=== PATIENT | female | born 1955 | race Caucasian/White ===

== ENCOUNTER 2019-06-16 06:12 | Day surgery (SDC) | payer OTHER ==
[2019-06-16] MEDS ORDERED: CEFAZOLIN SODIUM IN 0.9 % NACL 2 GM/100 ML BAG IV ONE (06:17)
[2019-06-16] MEDS ORDERED: LACTATED RINGERS 1,000 ML IV ONE ×2 (06:46→08:25)
--- NOTE | 2019-06-16 07:15 | ANESTHESIA ---
Pre-Anesthesia VS, & Labs - Diagnosis right index finger mass - Procedure excision of right finger index mass Vital Signs: Temp Pulse Resp BP Pulse Ox 36.5 C 73 18 136/70 H 100 06/16/19 06:20 06/16/19 06:20 06/16/19 06:20 06/16/19 06:20 06/16/19 06:20 Height 5 ft 6.93 in Weight (kg) 59.9 kg Body Mass Index 20.9 - NPO >8 hours - Is Patient ?: No Home Medications and Allergies Home Medications: Ambulatory Orders Liothyronine [Cytomel] 25 mcg PO QDAC 04/09/19 Loratadine 10 mg PO DAILY 07/18/14 Liothyronine [Cytomel] 25 mcg PO QDAC 04/09/19 Allergies/Adverse Reactions: Allergies Allergy/AdvReac Type Severity Reaction Status Date / Time lidocaine Allergy Edema Verified 06/10/19 11:43 Sulfa (Sulfonamide Allergy Emesis Verified 06/10/19 11:43 Antibiotics) cellulose Allergy Unknown Uncoded 06/10/19 11:43 sunlight Allergy Unknown Uncoded 06/10/19 11:43 Anes History & Medical History - Anesthetic History Anesthesia Complications: reports: No previous complications Family history of Anesthesia Complications: Denies Family history of Malignant Hyperthermia: Denies - Medical History Cardiovascular: reports: None, Other (snores) Pulmonary: reports: None Gastrointestinal: reports: None Urinary: reports: None Neuro: reports: None Musculoskeletal: reports: None, Other Endocrine/Autoimmune: reports: HyPOthyroidism Blood Disorders: reports: None Skin: reports: None Smoking Status: Former smoker (quit 1997) - Surgical History General: Colonoscopy Eyes Ears Nose Throat (EENT): Other (polypectomy) Exam General: Alert, Oriented x3, Cooperative, No acute distress Dental: WNL Mouth Openin Fingerbreadth Neck Mobility: Normal Mallampati classification: III Thyromental Distance: 4-6 cm (2 FB) Respiratory: Lungs clear, Normal breath sounds, No respiratory distress, No accessory muscle use Cardiovascular: Regular rate, Normal S1, Normal S2, No murmurs Mental/Cognitive Status: Alert/Oriented X3, Normal for patient Plan Anesthesia Type: General Consent for Procedure(s) Verified and Reviewed: Yes Code Status: Attempt Resuscitation ASA classification: 2-Mild systemic disease Is this case an emergency?: No
[2019-06-16] MEDS ORDERED: BUPIVACAINE 0.25% PF 30 ML VIAL ONE (07:23)
[2019-06-16] MEDS ORDERED: BUPIVACAINE 0.25% PF 30 ML VIAL SUBQ ONE (08:11)
[2019-06-16] MEDS ORDERED: ONDANSETRON 4 MG/2 ML VIAL IVP PRN (08:21)
[2019-06-16] MEDS ORDERED: oxyCODONE 5 MG TABLET PO PRN (08:21)
--- NOTE | 2019-06-16 08:27 | OPERATIVE REPORT ---
Operative Report - Other Other Information/Narrative: Date of Surgery: 16 June 2019 Pre-Op Diagnosis: Right index finger cyst overlying the PIP joint Procedure: Excision of right index finger cyst and osteophyte Postop Diagnosis: Same Primary Surgeon: Daniel Oliva Secondary Surgeon: None Complications: None Tourniquet Time: 15 minutes EBL: 1 cc Postoperative Protocol: Dressing off at 5 days and replace with Band-Aid. Full range of motion after that but no firm gripping for 3 weeks. Indication For Surgery: 63-year-old female with 8 months of an insidious onset mass over the right index finger that is painful and bothersome. She declined aspiration and desired definitive treatment to reduce her symptoms. I discussed the risk of recurrence as well as damage to nearby structures. The risks, benefits, and alternatives were discussed. Risks include pain, bleeding, infection, damage to nearby structures, numbness, lack of symptom relief, need for further surgery, DVT, PE, stroke, and . Written consent was obtained. The patient was met in the preoperative holding on the day of the procedure. Operative extremity was signed. Consent was verified. They desire to proceed. They were brought to the operating room and placed in the supine position. A well-padded forearm tourniquet was applied. They were prepped and draped in the standard fashion. A surgical timeout was held will be confirmed the patient procedure, identity, allergies, antibiotics, image,s laterality, and finger. All were in agreement we proceeded. A longitudinal incision was made centrally at the level of the PIP joint. Scissor dissection was used to separate the mass from surrounding tissues and the stalk was identified coming down between the central slip and the ulnar lateral band to the joint capsule. That interval was explored and the joint capsule and stalk were excised in 1 piece. A small osteophyte was seen dorsally over the proximal phalanx head and this was excised with a rondure. The wound was irrigated copiously. The lateral band and central slip interval was closed with a single Vicryl and the skin was closed with nylon. 5 cc of quarter percent Marcaine plain were instilled in a dorsal ring block. She was transferred to the recovery room.
[2019-06-16] MEDS ORDERED: ONDANSETRON 4 MG/2 ML VIAL ONE (08:33)
[2019-06-16 09:27] VITALS: BP 119/64
== END 2019-06-16 06:13 | disposition home or self-care (01) ==
LOC: SDS 06:12
PROVIDERS: ATTEND Orthopaedic Surgery
PROC: 0PBT0ZZ Excision of Right Finger Phalanx, Open Approach (ICD-10-PCS; principal; 2019-06-16 07:30)
DX: D18.09 Hemangioma of other sites (principal); M25.741 Osteophyte, right hand; Z87.891 Personal history of nicotine dependence

== ENCOUNTER 2019-06-19 12:25 | Emergency (ER) | payer OTHER ==
--- NOTE | 2019-06-19 13:40 | ED Physician Documentation ---
PD HPI SKIN - Stated complaint Stated Complaint: RASH RT ARM - Chief complaint Chief Complaint: Allergic Rx - History obtained from History obtained from: Patient - History of Present Illness Timing - onset: Last night, Yesterday Timing - details: Gradual onset Location: RUE Quality / character: Other (she had ganglion surgery right index finger 3 days ago and noted some small red bumpy rash on right forearm last night, to the upper arm today. Minimally itchy. No fever. Not tender.). No: Itchy, Painful Contributing factors: No: Exposed to medication (denies abx, NSAIDs, nor opioids since surgery.), Exposed to soap / lotion (has used same skin lotion as usual.) Recently seen: Surgery Review of Systems Constitutional: denies: Fever, Chills, Myalgias Nose: denies: Rhinorrhea / runny nose, Congestion Throat: denies: Sore throat Respiratory: denies: Cough Neurologic: denies: Focal weakness, Numbness PD PAST MEDICAL HISTORY - Past Medical History Past Medical History: Yes Cardiovascular: None, Other Respiratory: None Neuro: None Endocrine/Autoimmune: HyPOthyroidism GI: None P[employer] SAWYER: None : None HEENT: None Psych: None Musculoskeletal: None, Other Derm: None - Past Surgical History Past Surgical History: Yes General: Colonoscopy HEENT: Other - Present Medications Home Medications: Ambulatory Orders Medication Instructions Recorded Confirmed Loratadine 10 mg PO DAILY 07/18/14 06/16/19 Liothyronine [Cytomel] 25 mcg PO QDAC 04/09/19 06/16/19 - Allergies Allergies/Adverse Reactions: Allergies Allergy/AdvReac Type Severity Reaction Status Date / Time latex Allergy Rash Verified 06/19/19 12:33 lidocaine Allergy Edema Verified 06/19/19 12:33 Sulfa (Sulfonamide Allergy Emesis Verified 06/19/19 12:33 Antibiotics) cellulose Allergy Unknown Uncoded 06/19/19 12:33 sunlight Allergy Unknown Uncoded 06/19/19 12:33 - Social History Does the pt smoke?: No Smoking Status: Never smoker Does the pt drink ETOH?: No Does the pt have substance abuse?: No - Immunizations Immunizations are current?: Yes - POLST Patient has POLST: No PD ED PE NORMAL - Vitals Vital signs reviewed: Yes - General General: Alert and oriented X 3, No acute distress, Well developed/nourished - HEENT HEENT: Pharynx benign - Neck Neck: Supple, no meningeal sign, No adenopathy - Cardiac Cardiac: RRR, No murmur - Respiratory Respiratory: Clear bilaterally - Derm Derm: Normal color, Warm and dry, Other (no redness nor lymphangitic streaking around wound nor hand. There is mild finely bumpy maculopapular rash on forearm and some to upper arm. No hives. ) - Extremities Extremities: Other (dressing from index finger removed and wound appears good without signs of infection (was bandaged with petroleum gauze strip, gauze, and then Coban.)) - Neuro Neuro: No motor deficit, No sensory deficit Results - Vitals Vitals: Vital Signs - 24 hr 06/19/19 06/19/19 12:28 14:45 Temperature 36.8 C Heart Rate 86 76 Respiratory 17 18 Rate Blood Pressure 122/65 140/85 H O2 Saturation 99 99 Oxygen O2 Source Room air PD MEDICAL DECISION MAKING - ED course Complexity details: considered differential (maculopapular rash right forearm. No signs of lymphangitis. Rest of body okay. Presume local reaction to bandage on right finger. ), d/w patient Departure - Departure Disposition: 01 Home, Self Care Clinical Impression: Maculopapular rash, localized Condition: Stable Record reviewed to determine appropriate education?: Yes Instructions: ED Allergic Reaction Local Other Comments: The wound appears good without any signs of infection. The rash does not look like an infectious rash but more allergic reaction or sensitivity. At this point start cleaning the wound with just gentle soap and water once or twice a day and apply some type of the ointment locally just so it does not dry and hard. See if the rash dissipates in the next day or so as may be was just reacting to the wrap that had been in place. Recheck if not improved over the next few days. Follow-up postoperatively as p kayla. Recheck if more generalized rash or other symptoms develop. Discharge Date/Time: 06/19/19 14:44
[2019-06-19 14:45] VITALS: BP 140/85
== END 2019-06-19 14:44 | disposition home or self-care (01) ==
LOC: ED 12:25
DX: R21 Rash and other nonspecific skin eruption (principal); T78.49XA Other allergy, initial encounter; X58.XXXA Exposure to other specified factors, initial encounter; Z98.890 Other specified postprocedural states
CPT/HCPCS: 99282

== ENCOUNTER 2019-11-09 14:48 | Outpatient (CLI) | payer OTHER ==
--- NOTE | 2019-11-09 16:49 | MRI Report ---
PROCEDURE: Knee LT W/O INDICATIONS: KNEE PAIN TECHNIQUE: Noncontrast sagittal PD fast spin echo and T2 fast spin echo with fat saturation, sagittal 3-D gradie nt sequence with fat saturation; coronal T1 spin echo and PD fast spin echo with fat saturation, and axial PD fast spin echo with fat saturation through the knee. COMPARISON: None. FINDINGS: Image quality: Excellent. Menisci: Amorphous high signal intensity within the medial meniscal body and posterior horn is prese nt without evidence of articular surface extension. The medial and lateral menisci demonstrate otherw ise normal morphology and internal signal. The meniscal root ligaments appear intact. Cruciate ligaments: The anterior and posterior cruciate ligaments appear intact. Medial structures: The medial collateral ligament appears intact. Visualized portions of the pes ans erinus tendons appear normal. No abnormal bursal fluid. Lateral structures: The lateral collateral ligament, long and short heads of the biceps femoris tend on appear intact. The popliteus tendon appears normal. Iliotibial band appears normal. Anterior structures: The quadriceps and patellar tendons appear intact. Patellar alignment is korina l. No femoral trochlear dysplasia or ventral trochlear prominence. No edema in the infrapatellar fa t pad. Bones and cartilage: No bone marrow contusions or fractures. Mild tricompartmental periarticular ost eophyte formation. Mild articular cartilage loss diffusely overlies the weightbearing aspects of the medial femoral condyle and medial tibial plateau. Moderate articular cartilage loss overlies the medi al patellar facet. Joint space: There is a small knee joint effusion and a trace Choi?s cyst. Normal appearing synovi al plicae are incidentally noted. IMPRESSION: 1. No internal derangement. 2. 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 3. Small knee joint effusion and trace Choi's cyst. Reviewed by: Kaylie Handley MD on 11/09/2019 3:48 PM SKY Approved by: Kaylie Handley MD on 11/09/2019 3:48 PM AKNICOLE Station ID: [id number]
--- NOTE | 2019-11-09 16:53 | MRI Report ---
PROCEDURE: Knee RT W/O INDICATIONS: KNEE PAIN TECHNIQUE: Noncontrast sagittal PD fast spin echo and T2 fast spin echo with fat saturation, sagittal 3-D gradie nt sequence with fat saturation; coronal T1 spin echo and PD fast spin echo with fat saturation, and axial PD fast spin echo with fat saturation through the knee. COMPARISON: None. FINDINGS: Image quality: Excellent. Menisci: Linear oblique high T2 signal intensity traverses the medial meniscal body demonstrating sub tle inferior articular surface extension (series 901, image 16). Lateral meniscus is intact. Cruciate ligaments: The anterior and posterior cruciate ligaments appear intact. Medial structures: The medial collateral ligament appears intact. Visualized portions of the pes ans erinus tendons appear normal. No abnormal bursal fluid. Lateral structures: The lateral collateral ligament, long and short heads of the biceps femoris tend on appear intact. The popliteus tendon appears normal. Iliotibial band appears normal. Anterior structures: The quadriceps and patellar tendons appear intact. Mild T2 signal elevation wi thin the patellar tendon at the patellar insertion site. Patellar alignment is normal. No femoral tr ochlear dysplasia or ventral trochlear prominence. No edema in the infrapatellar fat pad. Bones and cartilage: No bone marrow contusions or fractures. Mild tricompartmental periarticular ost eophyte formation. Severe articular cartilage loss overlies the weightbearing aspects of the medial f emoral condyle and medial tibial plateau. Mild articular cartilage loss overlies the weightbearing as pects of the lateral femoral condyle and lateral tibial plateau. Severe articular cartilage loss over lies the medial patellar facet and medial apex. Joint space: There is a small knee joint effusion and a moderate Choi?s cyst. Normal appearing syn ovial plicae are incidentally noted. IMPRESSION: 1. Truck compartment loss or arthritis with associated articular cartilage loss. 2. Small knee joint effusion and moderate Choi's cyst. 3. Possible medial meniscal tear. 4. Patellar tendinitis. Reviewed by: Kaylie Handley MD on 11/09/2019 3:52 PM AKNICOLE Approved by: Kaylie Handley MD on 11/09/2019 3:52 PM AKDT Station ID: [id number]
== END 2019-11-09 14:49 | disposition home or self-care (01) ==
LOC: DI 14:48
PROVIDERS: ATTEND Family Medicine
DX: M17.0 Bilateral primary osteoarthritis of knee (principal); M25.462 Effusion, left knee; M71.22 Synovial cyst of popliteal space [Baker], left knee; M22.42 Chondromalacia patellae, left knee; M25.461 Effusion, right knee; M71.21 Synovial cyst of popliteal space [Baker], right knee; M67.863 Other specified disorders of tendon, right knee; M94.261 Chondromalacia, right knee

== ENCOUNTER 2022-11-13 08:04 | Outpatient (CLI) | payer MEDICARE, OTHER ==
[2022-11-13 08:38] LABS: BASOPHILS % (AUTO) 0.5 %; EOSINOPHILS # (AUTO) 0.6 10^3/uL (0.0-0.7); EOSINOPHILS % (AUTO) 13.1 %; HCT - HEMATOCRIT 38.5 % (37.0-47.0); HGB - HEMOGLOBIN 12.3 g/dL (12.0-16.0); LYMPHOCYTES # (AUTO) 2.1 10^3/uL (1.5-3.5); LYMPHOCYTES % (AUTO) 48.5 %; MEAN CORPUSCULAR HEMOGLOBIN 29.8 pg (27.0-31.0); MEAN CORPUSCULAR HGB CONC 31.9 g/dL (32.0-36.0); MEAN CORPUSCULAR VOLUME 93.2 fL (81.0-99.0); MEAN PLATELET VOLUME 10.1 fL (7.9-10.8); MONOCYTES # (AUTO) 0.5 10^3/uL (0.0-1.0); MONOCYTES % (AUTO) 11.7 %; NEUTROPHILS # (AUTO) 1.1 10^3/uL (1.5-6.6); PLT - PLATELET COUNT 222 10^3/uL (130-450); RED BLOOD COUNT 4.13 10^6/uL (4.20-5.40); RED CELL DISTRIBUTION WIDTH 12.8 % (12.0-15.0); WHITE BLOOD COUNT 4.4 x10^3/uL (4.8-10.8)
[2022-11-13 08:39] LABS: ALBUMIN 3.5 g/dL (3.2-5.5); ALBUMIN/GLOBULIN RATIO 1.2 (1.0-2.2); BILIRUBIN,TOTAL 0.3 mg/dL (0.2-1.0); CALCIUM 9.4 mg/dL (8.5-10.3); CREATININE 0.5 mg/dL (0.6-1.3); CRP - C-REACTIVE PROTEIN 0.6 mg/dL (<0.5); MAGNESIUM 1.8 mg/dL (1.7-2.3); POTASSIUM 4.1 mmol/L (3.5-4.5); TOTAL PROTEIN 6.4 g/dL (6.4-8.9)
[2022-11-13 09:05] LABS: THYROID STIMULATING HORMONE 0.01 uIU/mL (0.34-5.60)
[2022-11-14 07:15] LABS: PROGESTERONE 0.4 ng/mL (.)
[2022-11-14 18:12] LABS: THYROGLOBULIN ANTIBODY 1.7 IU/mL (0.0-0.9)
== END 2022-11-13 08:05 | disposition home or self-care (01) ==
LOC: LAB 08:04
PROVIDERS: ATTEND Nurse Practitioner Family
DX: R53.81 Other malaise (principal); R53.83 Other fatigue; Z79.890 Hormone replacement therapy
CPT/HCPCS: 36415; 80053; 82024; 82533; 82672; 83001; 83002; 83735; 84144; 84402; 84403; 84439; 84443; 85025; 85651; 86140; 86376; 86800

== ENCOUNTER 2023-07-24 07:47 | Outpatient (CLI) | payer MEDICARE, OTHER ==
[2023-07-24 08:20] LABS: CREATININE 0.7 mg/dL (0.6-1.3); POTASSIUM 3.9 mmol/L (3.5-4.5)
[2023-07-24 08:36] LABS: THYROID STIMULATING HORMONE 15.62 uIU/mL (0.34-5.60)
== END 2023-07-24 07:48 | disposition home or self-care (01) ==
LOC: LAB 07:47
PROVIDERS: ATTEND Internal Medicine Endocrinology, Diabetes & Metabolism
DX: R53.82 Chronic fatigue, unspecified (principal); E27.9 Disorder of adrenal gland, unspecified
CPT/HCPCS: 36415; 80048; 82088; 82533; 82627; 83835; 84244; 84439; 84443

== ENCOUNTER 2023-07-25 08:00 | Outpatient (CLI) | payer MEDICARE, OTHER | END 2023-07-25 23:59 | disposition home or self-care (01) | LOC: LAB.R 08:00 | PROVIDERS: ATTEND Internal Medicine Endocrinology, Diabetes & Metabolism | DX: E27.9 Disorder of adrenal gland, unspecified (principal) | CPT/HCPCS: 83835 ==

== ENCOUNTER 2023-09-01 08:00 | Outpatient (CLI) | payer MEDICARE, OTHER | END 2023-09-01 23:59 | disposition home or self-care (01) | LOC: LAB.R 08:00 | PROVIDERS: ATTEND Internal Medicine Endocrinology, Diabetes & Metabolism | DX: R79.89 Other specified abnormal findings of blood chemistry (principal) | CPT/HCPCS: 82533 ==

== ENCOUNTER 2023-09-03 13:12 | Outpatient (CLI) | payer MEDICARE, OTHER | END 2023-09-03 13:13 | disposition home or self-care (01) | LOC: LAB.R 13:12 | PROVIDERS: ATTEND Internal Medicine Endocrinology, Diabetes & Metabolism | DX: R79.89 Other specified abnormal findings of blood chemistry (principal) | CPT/HCPCS: 82530 ==